=== PATIENT | female | born 1995 | race Caucasian/White ===

== ENCOUNTER → 2016-05-30 | Outpatient (CLI) | payer BC, OTHER ==
[~2016-05-30] MED LIST: PREN-115 PO
--- NOTE | 2016-05-30 14:27 | Diagnostic Imaging Report ---
First trimester OB ultrasound. INDICATION: Dating. FINDINGS: There is a normal-appearing single intrauterine . An embryo is seen with cardiac activity at 156 beats per minute. The crown-rump length is at 8 weeks and 6 days. FELICIANO is 01/[birth year]. There is a slightly prominent follicle in the left ovary seen. The right ovary is obscured by bowel gas. IMPRESSION: Live single intrauterine . Dictated by: Dictated on workstation # [id number]
== END ==
LOC: RAD 13:48
PROVIDERS: ATTEND Family Medicine
DX: Z34.91 Encounter for supervision of normal pregnancy, unspecified, first trimester (principal); Z3A.08 8 weeks gestation of pregnancy
CPT/HCPCS: 76801

== ENCOUNTER → 2016-08-13 | Outpatient (CLI) | payer BC, OTHER ==
--- NOTE | 2016-08-13 18:50 | Diagnostic Imaging Report ---
EXAM: OB sonography. INDICATION: survey. FINDINGS: heart rate is 137 beats per minute. The placenta is anterior. There is no placenta previa. The cervix is long and closed. There is no ventriculomegaly. The posterior fossa appears unremarkable. The kidneys demonstrate no hydronephrosis or cystic mass. The stomach appears unremarkable. The cord insertion is not well seen. Three-vessel cord is not well seen. The bladder appears grossly unremarkable. spine demonstrates no definite abnormality. The four-chamber view is not well seen. growth parameters are all around 20 weeks and one day which when compared to gestational age based on the first trimester ultrasound dating with current gestational age of 19 weeks and 4 days, is within normal limits. IMPRESSION: Appropriate interval growth. Short-term followup within 2 weeks is recommended to reevaluate four-chamber view, cord insertion and three-vessel cord, not well seen on this exam due to position. Dictated by: Dictated on workstation # [id number]
== END ==
LOC: RAD 12:30
PROVIDERS: ATTEND Family Medicine
DX: Z34.92 Encounter for supervision of normal pregnancy, unspecified, second trimester (principal); Z36 Encounter for antenatal screening of mother
CPT/HCPCS: 76805

== ENCOUNTER → 2016-09-03 | Outpatient (CLI) | payer BC ==
--- NOTE | 2016-09-03 15:55 | Diagnostic Imaging Report ---
INDICATION: Followup umbilical cord and heart. COMPARISON: 08/13/2016. DISCUSSION: Transabdominal sonographic evaluation of the gravid uterus was performed on a limited basis. Single live intrauterine is again noted. presentation is cephalic. Normal amniotic fluid index. Grade 1 placenta is located anteriorly with no placenta previa. heart rate measures 138 beats per minute. Four-chamber heart is demonstrated on today's exam. There is good visualization of the three-vessel cord and insertion. No acute abnormality identified. IMPRESSION: 1. Good visualization of the four-chamber heart and umbilical cord on today's exam. Dictated by: Dictated on workstation # [id number]
== END ==
LOC: RAD 13:11
PROVIDERS: ATTEND Family Medicine
DX: Z34.90 Encounter for supervision of normal pregnancy, unspecified, unspecified trimester (principal); Z36 Encounter for antenatal screening of mother
CPT/HCPCS: 76816

== ENCOUNTER → 2016-09-21 | Outpatient (CLI) | payer BC ==
[2016-09-21 10:08] LABS: BASOPHILS % (AUTO) 0 % (0-10); EOSINOPHILS # (AUTO) 0.1 10^3/uL (0.0-0.3); EOSINOPHILS % (AUTO) 1 % (0-10); LYMPHOCYTES # (AUTO) 1.6 X 10^3 (1.0-4.0); LYMPHOCYTES % (AUTO) 19 % (12-44); MEAN CORPUSCULAR HEMOGLOBIN 29 PG (25-34); MEAN CORPUSCULAR HGB CONC 34 G/DL (32-36); MEAN CORPUSCULAR VOLUME 87 FL (80-99); MEAN PLATELET VOLUME 8.4 FL (7.4-10.4); MONOCYTES # (AUTO) 0.5 X 10^3 (0.0-1.0); MONOCYTES % (AUTO) 5 % (0-12); NEUTROPHILS # (AUTO) 6.3 X 10^3 (1.8-7.8); NEUTROPHILS % (AUTO) 75 % (42-75); PLATELET COUNT 219 10^3/uL (130-400); RED BLOOD COUNT 3.99 10^6/uL (4.35-5.85); RED CELL DISTRIBUTION WIDTH 13.9 % (10.0-14.5); WHITE BLOOD COUNT 8.3 10^3/uL (4.3-11.0)
== END ==
LOC: LAB 08:45
PROVIDERS: ATTEND Family Medicine
DX: Z34.92 Encounter for supervision of normal pregnancy, unspecified, second trimester (principal); Z3A.25 25 weeks gestation of pregnancy
CPT/HCPCS: 36415; 82950; 85025

== ENCOUNTER 2016-12-13 16:41 | Outpatient (CLI) | payer BC ==
[~2016-12-13] VITALS: Ht 170.2 cm; Wt 118.4 kg
[2016-12-13 18:14] VITALS: BP 132/63
== END 2016-12-13 16:49 | disposition home or self-care (01) ==
LOC: WSo 16:41
PROVIDERS: ATTEND Family Medicine
DX: O13.3 Gestational [pregnancy-induced] hypertension without significant proteinuria, third trimester (principal); Z3A.37 37 weeks gestation of pregnancy
CPT/HCPCS: 59025

== ENCOUNTER 2016-12-20 13:59 | Outpatient (RCR) | payer BC ==
[2016-12-20 13:45] VITALS: BP 164/89
[2016-12-20 14:00] VITALS: BP 150/84
[2016-12-20 14:15] VITALS: BP 163/98
[2016-12-20 14:30] VITALS: BP 158/90
== END 2017-02-16 | disposition home or self-care (01) ==
LOC: WSo 13:59
PROVIDERS: ATTEND Family Medicine
DX: O13.3 Gestational [pregnancy-induced] hypertension without significant proteinuria, third trimester; Z3A.38 38 weeks gestation of pregnancy

== ENCOUNTER 2016-12-24 20:13 | Inpatient (IN) | payer BC, OTHER ==
[~2016-12-24] VITALS: Ht 170.2 cm; Wt 119.7 kg
[2016-12-24] MEDS ORDERED: ZOLPIDEM 5 MG (AMBIEN) TAB PO PRN (20:30)
[2016-12-24] MEDS ORDERED: MINERAL OIL CONCENTRATE 99.9% 15 ML UDC TOP PRN (20:30)
[2016-12-24] MEDS ORDERED: DINOPROSTONE 10 MG (CERVIDIL) INSERT PV ONE (20:30)
[2016-12-24] MEDS: D5 LR IV SOLUTION 1,000 ML IV SCH (20:50)
[2016-12-24 20:55] LABS: BASOPHILS % (AUTO) 0 % (0-10); EOSINOPHILS # (AUTO) 0.1 10^3/uL (0.0-0.3); EOSINOPHILS % (AUTO) 1 % (0-10); LYMPHOCYTES # (AUTO) 2.8 X 10^3 (1.0-4.0); LYMPHOCYTES % (AUTO) 27 % (12-44); MEAN CORPUSCULAR HEMOGLOBIN 29 PG (25-34); MEAN CORPUSCULAR HGB CONC 34 G/DL (32-36); MEAN CORPUSCULAR VOLUME 86 FL (80-99); MEAN PLATELET VOLUME 9.4 FL (7.4-10.4); MONOCYTES # (AUTO) 0.8 X 10^3 (0.0-1.0); MONOCYTES % (AUTO) 8 % (0-12); NEUTROPHILS # (AUTO) 6.4 X 10^3 (1.8-7.8); NEUTROPHILS % (AUTO) 64 % (42-75); PLATELET COUNT 214 10^3/uL (130-400); RED BLOOD COUNT 4.09 10^6/uL (4.35-5.85); RED CELL DISTRIBUTION WIDTH 14.5 % (10.0-14.5); WHITE BLOOD COUNT 10.1 10^3/uL (4.3-11.0)
[2016-12-24 21:00] VITALS: BP 128/64
[2016-12-24 21:12] LABS: BILIRUBIN,URINE NEGATIVE (NEGATIVE); KETONES,URINE NEGATIVE (NEGATIVE); LEUKOCYTE ESTERASE ,URINE 2+ (NEGATIVE); NITRITE,URINE NEGATIVE (NEGATIVE); PH,URINE 7 (5-9); PROTEIN,URINE NEGATIVE (NEGATIVE); UROBILINOGEN,URINE NORMAL (NORMAL)
[2016-12-24] MEDS ORDERED: CATHETER FLUSH 10 ML SYR IV SCH (22:00)
[2016-12-24] MEDS: LACTATED RINGERS 1,000 ML IV SCH (23:56)
[2016-12-25] VITALS (37 sets, daily range): BP systolic 115–194; BP diastolic 59–99
[2016-12-25] MEDS: D5 LR IV SOLUTION 1,000 ML IV SCH (04:53)
[2016-12-25] MEDS ORDERED: BUTORPHANOL INJ 2 MG/ML (STADOL) VIAL IV PRN (06:15)
--- NOTE | 2016-12-25 06:44 | History & Physical-OB ---
OB - Chief Complaint & HPI Date/Time Date of Admission: Date of Admission: Dec 24, 2016 at 20:13 Time Seen by Provider: 06:40 Chief Complaint/History OB-Reason for Admission/Chief: Induction of Labor Hx : 2 Hx Para: 1 Expected Date of Delivery: Jan 03, 2017 Gestational Age in Weeks: 38 Gestational Age in Days: 5 Indication for induction: other ( induced hypertension) Admission Nurse Assessment Rev: Yes History of Labs GBS negative Allergies and Home Medications Allergies Coded Allergies: No Known Drug Allergies (Unverified , 11/19/12) Home Medications Vit #108/Iron/Fa 1 Each Tablet, 1 EACH PO DAILY, (Reported) OB - History Hx of Present Care: Yes Ultrasounds: Normal mid trimester US Obstetrical Complications: Other (PIH) Medical Complications: None Obstetrical History Hx Termination: No Delivery History Hx Blood Disorders: No Adverse Rxn to Tranfusion: No Patient Past Medical History PIH Social History/Family History Recent Infectious Disease Expo: No Alcohol Use: Denies Use Recreational Drug Use: No Immunizations Hepatitis A: Yes Hepatitis B: Yes Tetanus Booster (TDap): Unknown OB - Admission Exam Physical Exam Date Seen by Provider: Dec 25, 2016 Time Seen by Provider: 06:40 Vitals: Vital Signs 12/25/16 05:00 Temp 98.5 Pulse 82 Resp 18 B/P (MAP) 115/65 O2 Delivery Room Air HEENT: Moist Membranes Heart: Rhythm Normal Lungs: Clear Abdomen: Soft Extremities: Normal Reflexes: Normal Cervical Dilatation: 2cm Effacement: 50% Station: -3 Membranes: Intact Heart Rate: 130's Accelerations: Accelerations Present Short Term Variability: Present Contractions on Admission: >10 Minutes Apart Intensity: Mild Garcia Scoring Tool (Modified) Dilation (cm): 1-2cm (1) Effacement (%): 31-51% (1) Descent/Station: -3 (0) Cervix Consistency: Soft (2) Cervix Position: Middle/Mid-Position (1) Add 1 point for: Each previous vaginal delivery (1) Garcia Score: 6 Labs Laboratory Tests Test 12/24/16 20:30 12/24/16 20:40 Range/Units Urine Color YELLOW Urine Clarity CLEAR Urine pH 7 5-9 Urine Specific Palmer 1.010 L 1.016-1.022 Urine Protein NEGATIVE NEGATIVE Urine Glucose (UA) NEGATIVE NEGATIVE Urine Ketones NEGATIVE NEGATIVE Urine Nitrite NEGATIVE NEGATIVE Urine Bilirubin NEGATIVE NEGATIVE Urine Urobilinogen NORMAL NORMAL MG/DL Urine Leukocyte Esterase 2+ H NEGATIVE Urine RBC (Auto) NEGATIVE NEGATIVE Urine RBC NONE /HPF Urine WBC 5-10 H /HPF Urine Squamous Epithelial Cells 5-10 /HPF Urine Crystals NONE /LPF Urine Bacteria FEW H /HPF Urine Casts NONE /LPF Urine Mucus NEGATIVE /LPF Urine Culture Indicated YES White Blood Count 10.1 4.3-11.0 10^3/uL Red Blood Count 4.09 L 4.35-5.85 10^6/uL Hemoglobin 11.9 11.5-16.0 G/DL Hematocrit 35 35-52 % Mean Corpuscular Volume 86 80-99 FL Mean Corpuscular Hemoglobin 29 25-34 PG Mean Corpuscular Hemoglobin Concent 34 32-36 G/DL Red Cell Distribution Width 14.5 10.0-14.5 % Platelet Count 214 130-400 10^3/uL Mean Platelet Volume 9.4 7.4-10.4 FL Neutrophils (%) (Auto) 64 42-75 % Lymphocytes (%) (Auto) 27 12-44 % Monocytes (%) (Auto) 8 0-12 % Eosinophils (%) (Auto) 1 0-10 % Basophils (%) (Auto) 0 0-10 % Neutrophils # (Auto) 6.4 1.8-7.8 X 10^3 Lymphocytes # (Auto) 2.8 1.0-4.0 X 10^3 Monocytes # (Auto) 0.8 0.0-1.0 X 10^3 Eosinophils # (Auto) 0.1 0.0-0.3 10^3/uL Basophils # (Auto) 0.0 0.0-0.1 10^3/uL OB - Assessment/Plan/Diagnosis Assessment Assessment: induction of labor Plan Plan: Induction (by cervidil) Other Plan Patient desires epidural KELLY LITTLEJOHN MD Dec 25, 2016 06:44
[2016-12-25] MEDS ORDERED: OXYTOCIN/NORMAL SALINE 500 ML IV SCH ×2 (06:58→11:45)
[2016-12-25] MEDS ORDERED: SUFENTA 0.6MCG/ML BUPIVA 0.125 100 ML ONE (09:03)
[2016-12-25] MEDS: LACTATED RINGERS 1,000 ML IV SCH (09:09)
[2016-12-25] MEDS ORDERED: fentaNYL INJECTION 100 MCG/2 ML AMP ONE (09:23)
[2016-12-25] MEDS ORDERED: BUPIVACAINE 0.25% 30 ML (SENSORCAINE) VIAL ONE (09:24)
[2016-12-25] MEDS ORDERED: LIDOCAINE PF 2% 5 ML (XYLOCAINE) VIAL ONE (09:24)
[2016-12-25] MEDS ORDERED: LACTATED RINGERS 1,000 ML IV SCH (09:54)
[2016-12-25] MEDS ORDERED: NALOXONE 0.4 MG/ML 1 ML (NARCAN) VIAL IV PRN (10:00)
[2016-12-25] MEDS ORDERED: EPIDURAL (SUFENTA 0.6MCG/ML BUPIVA 0.125%) 100 ML BAG EPI PRN (10:00)
[2016-12-25] MEDS ORDERED: ONDANSETRON 4 MG/2 ML (SDV) Z0FRAN IV PRN (10:00)
[2016-12-25] MEDS ORDERED: diphenhydrAMINE 50 MG/ML INJ (BENADRYL) IV PRN (10:00)
[2016-12-25] MEDS ORDERED: MEASLES,MUMPS,RUBELLA 1 EA INJ SQ ONE (11:45)
[2016-12-25] MEDS ORDERED: HYDROcodone/APAP 5 MG/325 MG (LORTAB) TAB PO PRN (11:45)
[2016-12-25] MEDS ORDERED: BENZOCAINE/MENTHOL (DERMOPLAST) 56 ML CAN TP PRN (11:45)
[2016-12-25] MEDS ORDERED: TETANUS,DIPTH,PERTUSS P/F (BOOSTRIX) 0.5 ML VIAL IM ONE (11:45)
[2016-12-25] MEDS ORDERED: WITCH HAZEL(TUCKS) 40 EA JAR TOP PRN (11:45)
--- NOTE | 2016-12-25 11:49 | OB Labor & Delivery Record ---
L&D History Date of Service Date of Service: Dec 25, 2016 History Expected Date of Delivery: Jan 03, 2017 Gestational Age in Weeks: 38 Hx : 2 Hx Para: 1 Complications Events: Induced HTN Operative Indications (Cesarea: N/A-Vaginal Delivery Intrapartal Events: None L&D Stage1 Stage One Onset of Labor - Date: Dec 25, 2016 Onset of Labor - Time: 06:45 Monitors and Tracing Monitor Mode: Internal Heart Rate: 120 Monitor Accelerations: Uniform Monitor Decelerations: Variable Station: -3 Intermediate Variability: Average (6-10) Short Term Variability: Present Presentation: Vertex Vital Signs VS - Last 72 Hours, by Label 12/24/16 12/25/16 12/25/16 12/25/16 21:00 01:00 05:00 07:40 Temp 98.8 98.5 Pulse 85 80 82 81 Resp 18 18 18 18 B/P (MAP) 128/64 134/80 115/65 136/85 O2 Delivery Room Air Room Air 12/25/16 12/25/16 12/25/16 12/25/16 07:55 08:10 08:25 08:40 Pulse 86 96 80 86 Resp 18 18 18 18 B/P (MAP) 133/82 139/88 137/83 130/74 O2 Delivery Room Air Room Air Room Air Room Air 12/25/16 12/25/16 12/25/16 12/25/16 08:55 09:10 09:25 09:40 Pulse 84 92 80 93 Resp 18 18 18 18 B/P (MAP) 144/74 145/85 139/66 150/76 Pulse Ox 100 100 O2 Delivery Room Air Room Air Non Rebreather Non Rebreather O2 Flow Rate 15.00 15.00 12/25/16 12/25/16 12/25/16 12/25/16 09:45 09:50 09:55 10:00 Pulse 89 99 101 85 Resp 18 18 18 18 B/P (MAP) 154/75 136/75 139/69 141/61 Pulse Ox 99 99 100 99 O2 Delivery Non Rebreather Non Rebreather Non Rebreather Non Rebreather O2 Flow Rate 15.00 15.00 15.00 15.00 12/25/16 12/25/16 10:05 10:10 Pulse 88 82 Resp 18 18 B/P (MAP) 140/70 143/72 Pulse Ox 100 100 O2 Delivery Non Rebreather Non Rebreather O2 Flow Rate 15.00 15.00 Signs of Distress by FHT Signs of Distress no Rupture of Membranes Spontaneous Ruture of Membrane: No Amniotic Membrane Rupture Time: 0645 Amniotic Membrane Fluid Desc.: Clear Vaginal Bleeding Description: None Induction/Anesthesia Epidural Cath Placement - Time: 941 L&D Stage2 Stage Two Stage II Date: Dec 25, 2016 Stage II Time: 10:56 Monitors and Tracing Monitor Mode: Internal Heart Rate: 120 Monitor Accelerations: Uniform Monitor Decelerations: Variable Intermediate Variability: Average (6-10) Short Term Variability: Present Position: Left Occiput Anterior Presentation: Vertex Signs of Distress by FHT Signs of Distress no Cord Descript/Complications Cord Vessel Description: 3 Vessels Delivery Type Infant Delivery Method: Spontaneous Vaginal Episiotomy/Perineal Laceration Laceraction(s)/Extensions: Yes Episiotomy Description: Midline Sutures Used: Vicryl Condition of Delivery 1 minute Comment: 9 5 minute Comment: 9 Condition of Infant Condition of Infant: Living Exam: No Observed Abnormalities Resuscitation Resuscitation: N/A - Spontaneous Resp L&D Stage3 Stage Three Stage III Date: Dec 25, 2016 Stage III Time: 10:59 Pictocin Pitocin Administration mu/min: 6 Pitocin ml/hr: 6 Pitocin Administration Comment: PITOCIN STARTED PER PROTOCOL. Placenta Delivery Placenta Delivery: Spontaneous Delivery Summary Summary Vaginal blood loss >500ml: No 250 Condition of Delivery Examined: Cervix Examined Post Hemorrhage: No Intervention Required none KELLY LITTLEJOHN MD Dec 25, 2016 11:49
[2016-12-25] MEDS: IBUPROFEN 600 MG (MOTRIN) TAB PO SCH ×2 (13:30→20:32)
[2016-12-25] MEDS ORDERED: CATHETER FLUSH 10 ML SYR IV SCH (14:00)
[2016-12-26 00:30] VITALS: BP 119/64
[2016-12-26] MEDS: IBUPROFEN 600 MG (MOTRIN) TAB PO SCH ×2 (04:34→11:42)
[2016-12-26 04:35] VITALS: BP 114/68
[2016-12-26 06:07] LABS: BASOPHILS % (AUTO) 0 % (0-10); EOSINOPHILS # (AUTO) 0.1 10^3/uL (0.0-0.3); EOSINOPHILS % (AUTO) 1 % (0-10); LYMPHOCYTES # (AUTO) 2.5 X 10^3 (1.0-4.0); LYMPHOCYTES % (AUTO) 24 % (12-44); MEAN CORPUSCULAR HEMOGLOBIN 29 PG (25-34); MEAN CORPUSCULAR HGB CONC 33 G/DL (32-36); MEAN CORPUSCULAR VOLUME 88 FL (80-99); MEAN PLATELET VOLUME 9.2 FL (7.4-10.4); MONOCYTES # (AUTO) 0.7 X 10^3 (0.0-1.0); MONOCYTES % (AUTO) 6 % (0-12); NEUTROPHILS # (AUTO) 7.3 X 10^3 (1.8-7.8); NEUTROPHILS % (AUTO) 69 % (42-75); PLATELET COUNT 192 10^3/uL (130-400); WHITE BLOOD COUNT 10.5 10^3/uL (4.3-11.0)
--- NOTE | 2016-12-26 07:56 | Discharge Summary ---
Diagnosis/Chief Complaint Date of Admission Dec 24, 2016 at 20:13 Date of Discharge Discharge Date: Dec 26, 2016 Discharge Time: 12:00 Admission Diagnosis Admission Diagnosis 1. Intrauterine at term 38 weeks 5 days gestation 2. -induced hypertension Discharge Diagnosis 1. Intrauterine at term 38 weeks 5 days gestation 2. -induced hypertension Reason Hospital Visit 21-year-old 2 now term 2 female who initially was induced secondary to -induced hypertension. Her EDC was noted to be January 03, 2017. She was admitted during the evening of December 24, 2017 for Cervidil cervical ripening. Discharge Summary-OBS Procedures 1. Epidural per anesthesia 2. Spontaneous vaginal delivery 3. Repair of first midline episiotomy Discharge Physical Examination Allergies: Coded Allergies: No Known Drug Allergies (Unverified , 11/19/12) Vitals & I&Os Vital Signs Date Time Temp Pulse Resp B/P (MAP) Pulse Ox O2 Delivery O2 Flow Rate FiO2 12/26/16 04:35 99.0 98 18 114/68 99 Room Air 12/25/16 10:50 15.00 General Appearance: No Acute Distress HEENT: EOMI Respiratory: Clear to Auscultation Cardiovascular: Regular Rate Abdominal: Soft (With uterus firm) Hospital Course Following admission patient underwent Cervidil ripening. She had Cervidil pulled approximately 3 hours later due to hyperstimulation. Patient continued to contract on her own. She underwent amniotomy in the morning of December 25, 2016 at 06 45. Fluid was noted to be clear. Patient continued to contract eventually going on to completion and delivering a term viable male. received Apgars of 9 at 1 minute and 9 at 5 minutes. See labor and delivery summary for full details Following delivery patient underwent routine care orders. She had no complications during the remainder of hospital stay. Her hemoglobin day after delivery was 11.0. She was tolerating regular diet and ambulatory. She was felt ready for dismissal during the afternoon of December 26, 2016. Pending Labs Laboratory Tests 12/26/16 05:47: White Blood Count 10.5, Red Blood Count 3.80, Hemoglobin 11.0, Hematocrit 34, Mean Corpuscular Volume 88, Mean Corpuscular Hemoglobin 29, Mean Corpuscular Hemoglobin Concent 33, Red Cell Distribution Width 15.0, Platelet Count 192, Mean Platelet Volume 9.2, Neutrophils (%) (Auto) 69, Lymphocytes (%) (Auto) 24, Monocytes (%) (Auto) 6, Eosinophils (%) (Auto) 1, Basophils (%) (Auto) 0, Neutrophils # (Auto) 7.3, Lymphocytes # (Auto) 2.5, Monocytes # (Auto) 0.7, Eosinophils # (Auto) 0.1, Basophils # (Auto) 0.0 Discharge Instructions to patient/family Please see electonic discharge instructions given to patient. Discharge Medications Reviewed and agree with Discharge Medication list on patient's Discharge Instruction sheet Clinical Quality Measures DVT/VTE Risk/Contraindication: Risk Factor Score Per Nursin RFS Level Per Nursing on Admit: 2=Moderate KELLY LITTLEJOHN MD Dec 26, 2016 07:56
--- NOTE | 2016-12-26 07:58 | Discharge Inst-Women's Service ---
Discharge Inst-Women's Serv Depart Medication/Instructions New, Converted or Re-Newed RX: Other Consults/Follow Up Additional Follow Up: Yes (with Dr Quiros in 6 weeks) Activity Activity: Activity as Tolerated Driving Instructions: You May Drive NO SMOKING: NO SMOKING Nothing Inside Vagina: No [place] Diet Discharge Diet: Regular Diet Return to The Hospital For: As below Symptoms to Report to : Swelling Increased, Bleeding Excessive, Pain Increased, Fever Over 101 Degrees F, Vaginal Bleeding Increase, Vaginal Discharge KELLY Sorto MD Dec 26, 2016 07:58
[2016-12-26 09:39] VITALS: BP 112/65
[2016-12-26] MEDS ORDERED: TETANUS,DIPTH,PERTUSS P/F (BOOSTRIX) 0.5 ML VIAL IM ONE (11:32)
[2016-12-26] MEDS ORDERED: MEASLES,MUMPS,RUBELLA 1 EA INJ ONE (11:33)
[2016-12-26 12:40] VITALS: BP 120/65
--- NOTE | 2016-12-26 14:03 | Anesthesia-Regional Post-Op ---
Regional Patient Condition Mental Status: Alert, Oriented x3 Circulation: Same as Pre-Op Headache: Absent Sensation: Full Recovery Motor Block: Absent Post Op Complications Complications None Follow Up Care/Instructions Patient Instructions None needed. Anesthesia/Patient Condition Patient is doing well, no complaints, stable vital signs, no apparent adverse anesthesia problems. No complications reported per nursing. RAHUL PERSAUD CRNA Dec 26, 2016 14:03
== END 2016-12-26 15:30 | disposition home or self-care (01) | DRG 775 ==
LOC: LDRP 20:13 → ENPENDDIS 12-26 12:00
PROVIDERS: ADMIT Family Medicine; ATTEND Family Medicine
PROC: 10E0XZZ Delivery of Products of Conception, External Approach (ICD-10-PCS; principal; 2016-12-25)
PROC: 0W8NXZZ Division of Female Perineum, External Approach (ICD-10-PCS; 2016-12-25)
DX: O13.3 Gestational [pregnancy-induced] hypertension without significant proteinuria, third trimester (principal); Z3A.38 38 weeks gestation of pregnancy; Z37.0 Single live birth; Z23 Encounter for immunization
CPT/HCPCS: 36415; 81000; 85025; 86850; 86900; 86901; 87088; 90707; 90715